=== PATIENT | female | born 1980 | race Caucasian/White ===

== ENCOUNTER → 2023-01-09 19:04 | Outpatient (CLI) | payer BC, SELFPAY ==
[2023-01-10 04:20] LABS: Barbiturates Screen,Urine Negative ng/ml (<200)
[2023-01-10 04:23] LABS: Phencyclidine Screen,Urine Negative ng/ml (<25)
[2023-01-10 04:29] LABS: Cannabinoid Screen,Urine Negative ng/ml (<50); Cocaine Screen,Urine Negative ng/ml (<300)
[2023-01-10 16:23] LABS: Methadone Screen,Urine Negative ng/ml (<300)
[2023-01-10 16:26] LABS: Opiate Screen,Urine Negative ng/ml (<300)
[2023-01-10 17:03] LABS: Amphetamine/Metha Screen,Urine Negative ng/ml (<1000); Benzodiazepines Screen,Urine Positive ng/ml (<200)
== END ==
PROVIDERS: PCP Nurse Practitioner Acute Care; Visit Provider Nurse Practitioner Acute Care
DX: F41.9 Anxiety disorder, unspecified (principal); Z79.899 Other long term (current) drug therapy
CPT/HCPCS: 80305

== ENCOUNTER → 2023-02-13 13:06 | Outpatient (CLI) | payer BC, SELFPAY ==
[2023-01-25 18:40] LABS: Amphetamine/Metha Screen,Urine Negative ng/ml (<1000)
[2023-01-25 18:41] LABS: Barbiturates Screen,Urine Negative ng/ml (<200)
[2023-01-25 18:42] LABS: Benzodiazepines Screen,Urine Positive ng/ml (<200); Cannabinoid Screen,Urine Negative ng/ml (<50)
[2023-01-25 18:48] LABS: Cocaine Screen,Urine Negative ng/ml (<300); Methadone Screen,Urine Negative ng/ml (<300)
[2023-01-25 18:49] LABS: Opiate Screen,Urine Negative ng/ml (<300)
[2023-01-25 18:50] LABS: Phencyclidine Screen,Urine Negative ng/ml (<25)
== END ==
PROVIDERS: Visit Provider Nurse Practitioner Acute Care
DX: F41.9 Anxiety disorder, unspecified (principal); Z79.899 Other long term (current) drug therapy
CPT/HCPCS: 80305

== ENCOUNTER → 2023-04-13 11:00 | Outpatient (CLI) | payer BC, SELFPAY ==
[2023-04-13 19:05] LABS: Basophils # 0.1 K/mm3 (0-0.2); Basophils % 0.7 % (0.1-2.0); Eosinophils # 0.1 K/mm3 (0.0-0.4); Eosinophils % 1.4 % (0.1-12.0); Hematocrit 39.4 % (37.0-47.0); Hemoglobin 13.4 g/dL (12.2-16.2); Lymphocytes # 2.9 K/mm3 (0.7-4.5); Lymphocytes % 41.4 % (10-50); Mean Corpuscular HGB Conc 34.2 g/dL (31.8-35.4); Mean Corpuscular Hemoglobin 32.4 pg (27.0-31.2); Mean Corpuscular Volume 94.8 fl (81-99); Mean Platelet Volume 9.4 fl (7.4-10.4); Monocytes # 0.2 K/mm3 (0.1-1.0); Monocytes % 3.2 % (1.7-9.3); Neutrophils # 3.8 K/mm3 (1.8-7.8); Neutrophils % 53.3 % (37.0-80.0); Platelet Count 383 K/mm3 (142-424); Red Blood Count 4.15 M/mm3 (4.20-5.40); Red Cell Distribution Width 14.1 % (11.5-17.5); White Blood Count 7.1 K/mm3 (4.8-10.8)
[2023-04-13 19:19] LABS: Amphetamine/Metha Screen,Urine Negative ng/ml (<1000); Benzodiazepines Screen,Urine Positive ng/ml (<200)
[2023-04-13 19:20] LABS: Barbiturates Screen,Urine Negative ng/ml (<200); Methadone Screen,Urine Positive ng/ml (<300)
[2023-04-13 19:21] LABS: Cannabinoid Screen,Urine Positive ng/ml (<50)
[2023-04-13 19:22] LABS: Cocaine Screen,Urine Negative ng/ml (<300)
[2023-04-13 19:23] LABS: Opiate Screen,Urine Negative ng/ml (<300)
[2023-04-13 19:24] LABS: Phencyclidine Screen,Urine Negative ng/ml (<25)
[2023-04-13 19:30] LABS: Alanine Aminotransferase 16 U/L (12-78); Albumin Level 4.4 g/dl (3.5-5.0); Albumin/Globulin Ratio 1.8 (1.1-1.8); Alkaline Phosphatase 76 U/L (38-126); Anion Gap 15.2 mEq/L (5-15); Aspartate Amino Transferase 26 U/L (14-36); Bilirubin,Total 0.3 mg/dl (0.2-1.3); Blood Urea Nitrogen 5 mg/dl (7-17); Calcium 9.3 mg/dl (8.4-10.2); Carbon Dioxide 26 mmol/L (22.0-30.0); Chloride 104 mmol/L (98-107); Chol/HDL Ratio 5.8 (1-3.5); Cholesterol 262 mg/dl (140-200); Estimated Glomerular Filt Rate 92 ml/min (>60); GFR (African American) 112 ML/MIN (>60); Globulin 2.5 g/dL (1.3-3.2); Glucose 106 mg/dl (74-100); HDL Cholesterol 45 mg/dl (40-60); Potassium 3.2 mmoL/L (3.5-5.1); Sodium 142 mmol/L (136-145); Total Protein,Serum 6.9 g/dl (6.3-8.2); Triglycerides 92 mg/dl (30-150); VLDL Cholesterol 18 mg/dL (0-40)
[2023-04-13 19:41] LABS: Direct LDL Cholesterol 184.82 mg/dL (100-129)
[2023-04-13 19:45] LABS: Free T4 (Free Thyroxine) 1.21 ng/dl (0.78-2.19)
[2023-04-13 19:52] LABS: Hemoglobin A1C 4.7 % (4.0-6.0)
[2023-04-13 19:59] LABS: Thyroid Stimulating Hormone 0.32 uIU/mL (0.465-4.68)
[2023-04-15 08:16] LABS: Lithium (Eskalith(R)) <0.1 mmol/L (0.5-1.2)
[2023-04-24 20:27] LABS: 1,25 Dihydroxy Vitamin D 110 pg/mL (.); 1,25-Dihydroxy, Vitamin D-2 <10 pg/mL (.); 1,25-Dihydroxy, Vitamin D-3 100 pg/mL (.)
== END ==
PROVIDERS: PCP Family Medicine; Visit Provider Nurse Practitioner Acute Care
DX: G89.4 Chronic pain syndrome (principal); F43.10 Post-traumatic stress disorder, unspecified; F39 Unspecified mood [affective] disorder; F41.9 Anxiety disorder, unspecified; Z79.899 Other long term (current) drug therapy
CPT/HCPCS: 80053; 80061; 80178; 80305; 82652; 83036; 84439; 84443; 85025